=== PATIENT | female | born 1990 | race Caucasian/White ===

== ENCOUNTER 2022-04-06 09:08 | Outpatient (CLI) | payer BC, SELFPAY | END 2022-04-06 09:09 | disposition home or self-care (01) | LOC: NFLDREF 15:12 | PROVIDERS: PCP Physician Assistant Medical; Visit Provider Physician Assistant | DX: N97.9 Female infertility, unspecified (principal); Z31.69 Encounter for other general counseling and advice on procreation | CPT/HCPCS: 84144 ==

== ENCOUNTER 2022-04-17 08:32 | Outpatient (CLI) | payer BC, SELFPAY ==
[2022-04-17 10:47] LABS: Free T4 Free Thyroxine* 1.16 ng/dL (0.70-1.85)
[2022-04-18 12:56] LABS: Estradiol Premenol Female 41 pg/mL
[2022-04-18 17:28] LABS: Prolactin 4.8 ng/mL (2.8-29.2)
[2022-04-18 17:44] LABS: Follicle Stimulating Hormone 4.4 IU/L
[2022-04-25 13:06] LABS: Sex Hormone Binding Globulin 18 nmol/L (25-122); Testosterone Bioavailable 11.1 ng/dL (4.1-25.5); Testosterone, Free LC-MS/MS 4.5 pg/mL (1.3-9.2); Testosterone, LC-MS/MS 19 ng/dL (9-55)
[2022-04-25 16:36] LABS: 17-Hydroxyprogesterone HPLC 34.72 ng/dL (<=206.00)
== END 2022-04-17 08:33 | disposition home or self-care (01) ==
PROVIDERS: PCP Physician Assistant Medical; Visit Provider Physician Assistant
DX: Z31.9 Encounter for procreative management, unspecified (principal)
CPT/HCPCS: 36415; 82670; 83001; 83036; 83498; 84146; 84270; 84402; 84403; 84439; 84443

== ENCOUNTER 2022-05-31 10:41 | Outpatient (CLI) | payer BC, SELFPAY ==
[2022-05-31 11:28] LABS: Free T4 Free Thyroxine* 0.96 ng/dL (0.70-1.85)
== END 2022-05-31 10:42 | disposition home or self-care (01) ==
PROVIDERS: PCP Physician Assistant Medical; Visit Provider Obstetrics & Gynecology
DX: E03.9 Hypothyroidism, unspecified (principal)
CPT/HCPCS: 84439; 84443

== ENCOUNTER 2022-06-29 16:20 | Outpatient (CLI) | payer BC, SELFPAY | END 2022-06-29 16:21 | disposition home or self-care (01) | PROVIDERS: PCP Physician Assistant Medical; Visit Provider Physician Assistant | DX: Z13.29 Encounter for screening for other suspected endocrine disorder (principal); Z31.9 Encounter for procreative management, unspecified | CPT/HCPCS: 84443 ==

== ENCOUNTER 2022-09-20 14:22 | Outpatient (CLI) | payer BC, SELFPAY | END 2022-09-20 14:23 | disposition home or self-care (01) | LOC: NFLDREF 14:23 | PROVIDERS: PCP Physician Assistant Medical; Visit Provider Obstetrics & Gynecology | DX: E03.9 Hypothyroidism, unspecified (principal); E66.01 Morbid (severe) obesity due to excess calories | CPT/HCPCS: 84443 ==

== ENCOUNTER 2022-10-18 07:41 | Outpatient (CLI) | payer BC, SELFPAY | END 2022-10-18 07:42 | disposition home or self-care (01) | LOC: NFLDREF 13:10 | PROVIDERS: PCP Physician Assistant Medical; Referring Provider Physician Assistant Medical; Visit Provider Obstetrics & Gynecology | DX: N97.0 Female infertility associated with anovulation (principal); E03.9 Hypothyroidism, unspecified | CPT/HCPCS: 84144; 84443 ==

== ENCOUNTER 2022-12-10 08:05 | Outpatient (CLI) | payer BC, SELFPAY | END 2022-12-10 08:06 | disposition home or self-care (01) | LOC: NFLDREF 12-15 06:25 | PROVIDERS: PCP Physician Assistant Medical; Referring Provider Physician Assistant Medical; Visit Provider Obstetrics & Gynecology | DX: Z31.9 Encounter for procreative management, unspecified (principal) | CPT/HCPCS: 84144 ==

== ENCOUNTER 2022-12-24 11:01 | Outpatient (CLI) | payer BC, SELFPAY ==
--- NOTE | 2022-12-24 11:15 | CRLHL7_ITS ---
For Patients: As a result of the Century Cures Act, medical imaging exams and procedure reports are released immediately into your electronic medical record. You may view this report before your referring provider. If you have questions, please contact your health care provider. INDICATION: Evaluate tubal patency. Fertility workup. TECHNIQUE: Fluoroscopically-guided hysterosalpingogram performed in conjunction with Dr. Svetlana Narayanan. FINDINGS: Normal-appearing uterus. Free spill of contrast from the right fallopian tube. There is not convincing evidence for spill on the left. There could be a left-sided hydrosalpinx. Ultrasound may be helpful for confirmation. 39 seconds fluoroscopy time utilized. This examination was discussed briefly with Dr. Narayanan after the procedure. IMPRESSION: 1. Probable left-sided hydrosalpinx. Ultrasound confirmation may be helpful. 2. Normal uterus and right fallopian tube. Dictated by Al Kennedy MD @ 12/24/2022 3:54:42 PM (Electronically Signed)
--- NOTE | 2022-12-24 21:37 | P.GYNPRC_ITS ---
Procedure Note Date Seen: 12/24/22 Procedure Details: PREPROCEDURE DIAGNOSIS: Secondary infertility. POSTPROCEDURE DIAGNOSIS: 1. Secondary infertility. 2. Left distal hydrosalpinx. Normal right fallopian tube. NAME OF PROCEDURE: Hysterosalpingogram. ANESTHESIA: None. COMPLICATIONS: None. PROCEDURE: After obtaining verbal consent, the patient was placed in the dorsal lithotomy position on the x-ray table. An open-sided bivalve speculum was introduced into the vagina and the cervix easily visualized. The cervix and vagina were then prepped with Betadine. The anterior lip of the cervix was grasped with a single-tooth tenaculum for traction. A balloon tipped double- lumen catheter was then gently inserted through the cervical opening into the uterine cavity to the level of the fundus. The balloon was insufflated with 3 mL of air. The speculum was removed. The patient was repositioned in the supine position, covered, and the radiologist was called to the room. A hysterosalpingogram was then performed. A total of approximately 5 cc of Optiray 300 water soluble contrast dye was injected through the double-lumen catheter under moderate pressure. There was immediate fill of the uterine cavity to the cornua immediate fill of the right fallopian tube and spillage into the pelvis. There was immediate fill of the proximal left fallopian tube, which was initially thought to be patent tube. However, upon reinspection of the images, the tubal dye collected in a dilated distal left fallopian tube, consistent with hydrosalpinx. The balloon was deflated. The catheter was removed. The tenaculum was removed from the anterior lip of the cervix. Speculum was reinserted and hemostasis was noted. The patient tolerated the procedure well, though she did have moderate cramping discomfort during and just after the procedure. She was discharged to home in stable condition. She was contacted with the results of the suspected left hydrosalpinx, and prescription is sent to the pharmacy for doxycycline 100 mg b.i.d. for 5 days. She was directed to follow-up at her earliest convenience for a preoperative visit with plan for laparoscopic left salpingectomy and chromopertubation.
== END 2022-12-24 11:02 | disposition home or self-care (01) ==
LOC: RAD 11:02
PROVIDERS: PCP Physician Assistant Medical; Visit Provider Obstetrics & Gynecology
DX: N97.1 Female infertility of tubal origin (principal); N70.11 Chronic salpingitis
CPT/HCPCS: 58340; 74740; A4649; Q9967

== ENCOUNTER 2023-01-04 09:08 | Outpatient (CLI) | payer BC, SELFPAY ==
[2023-01-07 18:35] LABS: Progesterone, HPLC-MS/MS 11.05 ng/mL
== END 2023-01-04 09:09 | disposition home or self-care (01) ==
LOC: LAB 09:09
PROVIDERS: PCP Physician Assistant Medical; Visit Provider Obstetrics & Gynecology
DX: Z31.9 Encounter for procreative management, unspecified (principal)
CPT/HCPCS: 36415; 84144

== ENCOUNTER 2023-02-10 06:03 | Day surgery (SDC) | payer BC, SELFPAY ==
[2023-02-10] VITALS (13 sets, daily range): BP systolic 109–131; BP diastolic 68–86; PULSE 76–97; RESP 12–20; TEMP 36.9–37.1; O2SAT 95–98; BMI 42.6
[2023-02-10 06:26] LABS: Ur HCG Qualitative* Negative (Negative)
[2023-02-10] MEDS: LACTATED RINGERS 1000 ML 1,000 ML 100 ML IV (06:35)
[2023-02-10] MEDS: SODIUM CHLORIDE 0.9 % (FLUSH) 10 ML SYRINGE IVF (06:35)
--- NOTE | 2023-02-10 07:17 | W.PM.H&PU ---
History & Physical Update History & Physical Update H&P Reviewed and patient assessed: No changes noted H&P Updates: Physical exam: General: Pleasant, no acute distress Heart: Regular rate and rhythm, no murmur or gallop Lungs: Clear to auscultation bilaterally
--- NOTE | 2023-02-10 07:58 | W.ANESCHARGE ---
Anesthesia Charges Start Date/Time Anesthesia Start Date: 02/10/23 Anesthesia Start Time: 07:22 Stop Date/Time Anesthesia Stop Date: 02/10/23 Anesthesia Stop Time: 10:09
[2023-02-10] MEDS: BUPIVACAINE 0.25% 30 ML INJECTION (07:59)
--- NOTE | 2023-02-10 09:09 | W.ANESCHARGE ---
Anesthesia Charges Start Date/Time Anesthesia Start Date: 02/10/23 Anesthesia Start Time: 07:22 Stop Date/Time Anesthesia Stop Date: 02/10/23 Anesthesia Stop Time: 10:09
[2023-02-10] MEDS: LACTATED RINGERS 1000 ML 1,000 ML 35 ML IV (10:16)
[2023-02-10] MEDS: fentaNYL 100 MCG/2 ML inj 50 MCG IVP (10:20)
[2023-02-10] MEDS: OXYCODONE 5 MG TABLET 10 MG PO (11:30)
--- NOTE | 2023-02-10 18:20 | W.PM.GYNPROC ---
Procedure Note Date of procedure: 02/10/23 Pre-op diagnosis: Left hydrosalpinx on recent hysterosalpingogram Post-op diagnosis: other (1. Left hydrosalpinx with opal tubal adhesions. 2. Opal tubal adhesions of right fallopian tube. 3. Endometriosis involving the posterior cul-de-sac) Procedure: Laparoscopy with lysis of adhesions, excision of endometriosis, chromopertubation, and left salpingectomy Anesthesia: GETA Complications: None Surgeon: Svetlana Narayanan MD Client Development Director: Janneth Gomez Estimated blood loss (mL): 10 IV fluids (mL): 1,000 Urine Output (mL): 500 Pathology: specimen obtained, sent to pathology Condition: stable Disposition: PACU Findings: 1. Upon pelvic exam under anesthesia, the cervix and vagina were normal in appearance. Uterus was mobile and midposition, of normal size and texture. There were no palpable adnexal masses. 2. Upon laparoscopy, survey of the upper abdomen revealed a normal appearance to the inferior edge of the liver, gallbladder and stomach. There was a sheet of omental adhesion to the left upper quadrant. Bowels were grossly normal appearance. Survey of the pelvis revealed normal appearance to the uterus. There were some filmy adhesions along the bladder reflection anteriorly, consistent with previous delivery. The left fallopian tube was adherent to the pelvic brim, encased in adhesions near its distal end. After adhesions were released, the tube was still not found to be patent on chromopertubation, and distal hydrosalpinx was persistent. The right fallopian tube was also encased in filmy adhesions and initially in an abnormal location, with the fimbria adherent to the broad ligament anterior to the round ligament. Upon chromopertubation, there was fill and spill noted on the right side. Bilateral ovaries were normal in appearance. The cul-de-sac exhibited 2 powder burn lesions. One was within the serosa of the rectum, and the other was anterior to this in the cul-de-sac. Procedure Description: Patient was taken to the operating room with IV running. She received cefazolin in preoperative prophylaxis. She was positioned in dorsal lithotomy position with her legs fully supported in Yellofin stirrups. General anesthesia was administered. She was prepped and draped in the usual sterile fashion. Bimanual exam was performed for the above-noted findings. Speculum was inserted. A single-toothed uterine manipulator was inserted through the cervix into the lower uterine segment, and affixed to the anterior cervical lip. Speculum was removed. Mccord catheter was placed. Patient's legs were placed in neutral position. Attention was turned to patient's abdomen. The infraumbilical area was infiltrated with small amount of Marcaine. An infraumbilical incision was made with a scalpel and carried through to the underlying layer of fascia with a hemostat. The 5 mm Fios Kii trocar was assembled with laparoscope within, and insufflator attached. While tenting up the abdomen manually, the trocar was passed through the anterior abdominal wall into the peritoneal cavity. Trocar was removed. Pneumoperitoneum was achieved. Survey of abdomen and pelvis revealed the above-noted findings. Three additional port sites were created. The first was in the patient's left lower quadrant, just superior medial to the left ASIS. The second was a hand's breath superior to and slightly medial to the first. The third was in the patient's right lower quadrant, just superior medial to the right ASIS. Each was infiltrated with small amount of Marcaine prior to incision. A 5 mm incision was made at each site, making sure the large vessels were out of harm's way. A 5 mm Fios Kii port was inserted at each site, under direct visualization and without complication. The balloon on each of the four ports was inflated, holding each in place. The filmy adhesions encasing the distal left fallopian tube were dissected sharply away from the pelvic sidewall, mobilizing the tube into a normal anatomic location. Hemostasis of the dissection bed was noted. Likewise, the filmy adhesions encasing the right fallopian tube were dissected sharply away from the tube. The tube was mobilized substantially, allowing it to be return to a normal anatomic location as well. There was some blood clot at the dissection site in the anterior leaf of the broad ligament. Patient's legs were placed back in lithotomy position. The uterine manipulator was removed. A chromopertubation catheter was inserted through the cervix and into the uterus. The balloon tip of the catheter was inflated, holding it in place. The uterus was filled with normal saline containing methylene blue. Spillage of dye was noted through the right fallopian tube. However, the left fallopian tube remained filled and dilated, but did not drain. Further attempts to dissect away adhesions surrounding the fimbria resulted in opening up the distal tube, which clearly exhibited a hydrosalpinx. Decision was made to remove the left tube for this indication. While holding the tube away from the pelvic sidewall and ovary, the blood supply was cauterized and transected with the Thunderbeat device. Dissection was carried laterally to medially, until the cornua was reached. The tube was amputated at the left uterine cornua. It was removed from the abdomen and sent to pathology. The cul-de-sac was closely examined. The lesion that was not within the rectal mucosa was grasped with [place] forceps and dissected away from the surrounding peritoneum of the cul-de-sac with laparoscopic marcos. This was sent to pathology for analysis. Hemostasis of the biopsy site was noted. Rupa hemostatic agent was placed over the dissection bed in the anterior leaf of the right broad ligament. All instruments were removed from the ports. Pneumoperitoneum was released. The balloon tips of all ports were deflated, and the ports were removed. The skin of the port sites was closed with a subcuticular stitch of 4-0 Monocryl. Surgical glue was applied above this. The chromopertubation catheter was removed from the patient's uterus. Catheter was removed the patient's bladder. Patient tolerated procedure well and was taken to the recovery area in stable condition. I spoke to the patient's , and recommended against attempts to conceive this cycle. He expressed understanding.
== END 2023-02-10 12:07 | disposition home or self-care (01) ==
PROVIDERS: PCP Physician Assistant Medical; Visit Provider Obstetrics & Gynecology
PROC: (CPT 49320; principal; 2023-02-10 07:15)
DX: N70.11 Chronic salpingitis (principal); N73.6 Female pelvic peritoneal adhesions (postinfective); N80.329 Endometriosis of the posterior cul-de-sac, unspecified depth
CPT/HCPCS: 58662; 58661; 58350; 00840; 36415; 81025; 86850; 86900; 86901; 88305; A9270; C1758; J0330; J0665; J1100; J1170; J1885; J2250; J2405; J2704; J3010; J3490; J7120

== ENCOUNTER 2023-03-28 08:00 | Outpatient (CLI) | payer BC, SELFPAY | END 2023-03-28 08:01 | disposition home or self-care (01) | LOC: NFLDREF 04-01 09:36 | PROVIDERS: PCP Physician Assistant Medical; Referring Provider Physician Assistant Medical; Visit Provider Obstetrics & Gynecology | DX: E28.2 Polycystic ovarian syndrome (principal) | CPT/HCPCS: 84144 ==

== ENCOUNTER 2023-04-22 07:40 | Outpatient (CLI) | payer BC, SELFPAY | END 2023-04-22 07:41 | disposition home or self-care (01) | LOC: NFLDREF 04-27 06:18 | PROVIDERS: PCP Physician Assistant Medical; Referring Provider Physician Assistant Medical; Visit Provider Obstetrics & Gynecology | DX: Z31.9 Encounter for procreative management, unspecified (principal) | CPT/HCPCS: 84144 ==

== ENCOUNTER 2024-02-27 10:23 | Outpatient (CLI) | payer BC, SELFPAY ==
--- NOTE | 2024-02-27 11:00 | CRLHL7_ITS ---
For Patients: As a result of the Century Cures Act, medical imaging exams and procedure reports are released immediately into your electronic medical record. You may view this report before your referring provider. If you have questions, please contact your health care provider. INDICATION: Left leg swelling TECHNIQUE: Ultrasound venous duplex lower left extremity. Compression venous exam was performed using an-scale, color Doppler, and spectral Doppler analysis. COMPARISON: None. FINDINGS: Sonographic imaging demonstrates the left common femoral, deep femoral, superficial femoral, popliteal, posterior tibial and greater saphenous and the contralateral right common femoral veins to be fully compressible with normal color Doppler blood flow. IMPRESSION: Normal left lower extremity venous ultrasound, no sign of deep venous thrombosis. Dictated by Nazario Mcguire MD @ 02/27/2024 11:40:21 AM (Electronically Signed)
== END 2024-02-27 10:24 | disposition home or self-care (01) ==
PROVIDERS: PCP Physician Assistant Medical; Visit Provider Physician Assistant Medical
DX: M79.89 Other specified soft tissue disorders (principal); M79.605 Pain in left leg
CPT/HCPCS: 84443; 93971

== ENCOUNTER 2024-09-20 12:02 | Outpatient (CLI) | payer BC, SELFPAY ==
--- NOTE | 2024-09-20 12:15 | CRLHL7_ITS ---
For Patients: As a result of the Cures Act, medical imaging exams and procedure reports are released immediately into your electronic medical record. You may view this report before your referring provider. If you have questions, please contact your health care provider. OB ULTRASOUND INDICATION: Dating and viability. TECHNIQUE: Real time grayscale imaging of the fetus was performed. Transvaginal. LMP: 07/17/2024. NICHOLAS by LMP: 04/23/2025. GA: 9 w, 2 d. Previous US: No. CRL: 2.6 cm. 9 w 2 d. NICHOLAS: 04/23/2025. FHR: 180 BPM. Gestational sac: 3.6 cm. Appears within normal limits. Yolk sac: 4.0 mm. Appears within normal limits. Right ovary: N/V. Left ovary: 4.2 x 2.2 x 2.9 cm. IMPRESSION: Single living intrauterine with sonographic gestational age 9 weeks 2 days and sonographic due date 04/23/2025. Tani Berry M.D. Diagnostic Radiologist [email or web address] loco/Dictated by: Tani Berry MD @ 09/21/2024 9:00:00 AM (Electronically Signed)
== END 2024-09-20 12:03 | disposition home or self-care (01) ==
LOC: US 12:04
PROVIDERS: PCP Physician Assistant Medical; Visit Provider Physician Assistant
DX: Z34.91 Encounter for supervision of normal pregnancy, unspecified, first trimester (principal); Z3A.09 9 weeks gestation of pregnancy
CPT/HCPCS: 76817; 83021; 84443; 86592; 86703; 86704; 86706; 86762; 86787; 86803; 86850; 86900; 86901; 87086; 87340

== ENCOUNTER 2024-09-20 13:10 | Outpatient (CLI) | payer BC, SELFPAY | END 2024-09-20 13:11 | disposition home or self-care (01) | PROVIDERS: PCP Physician Assistant Medical; Visit Provider Physician Assistant | DX: Z34.91 Encounter for supervision of normal pregnancy, unspecified, first trimester (principal); Z3A.09 9 weeks gestation of pregnancy | CPT/HCPCS: 83020; 83021; 84443; 85660; 86592; 86703; 86704; 86706; 86762; 86787; 86803; 86850; 86900; 86901; 87086; 87340 ==

== ENCOUNTER 2024-10-18 08:45 | Outpatient (CLI) | payer BC, SELFPAY | END 2024-10-18 08:46 | disposition home or self-care (01) | PROVIDERS: PCP Physician Assistant Medical; Visit Provider Physician Assistant | DX: E03.9 Hypothyroidism, unspecified (principal); Z11.3 Encounter for screening for infections with a predominantly sexual mode of transmission | CPT/HCPCS: 84443; 87491; 87591 ==

== ENCOUNTER 2024-12-05 10:33 | Outpatient (CLI) | payer BC, SELFPAY | END 2024-12-05 10:34 | disposition home or self-care (01) | PROVIDERS: PCP Physician Assistant Medical; Visit Provider Physician Assistant | DX: O09.522 Supervision of elderly multigravida, second trimester (principal); O99.212 Obesity complicating pregnancy, second trimester; E66.01 Morbid (severe) obesity due to excess calories; Z68.42 Body mass index [BMI] 45.0-49.9, adult; Z3A.20 20 weeks gestation of pregnancy | CPT/HCPCS: 76811 ==

== ENCOUNTER 2025-01-02 13:06 | Outpatient (CLI) | payer BC, SELFPAY | END 2025-01-02 13:07 | disposition home or self-care (01) | LOC: US 13:07 | PROVIDERS: PCP Physician Assistant Medical; Visit Provider Obstetrics & Gynecology | DX: Z36.2 Encounter for other antenatal screening follow-up (principal); O99.212 Obesity complicating pregnancy, second trimester; O09.522 Supervision of elderly multigravida, second trimester; Z3A.24 24 weeks gestation of pregnancy | CPT/HCPCS: 76816 ==

== ENCOUNTER 2025-01-31 13:53 | Outpatient (CLI) | payer BC, SELFPAY ==
--- NOTE | 2025-01-31 14:00 | CRLHL7_ITS ---
For Patients: As a result of the Century Cures Act, medical imaging exams and procedure reports are released immediately into your electronic medical record. You may view this report before your referring provider. If you have questions, please contact your health care provider. OB ULTRASOUND LMP: 07/17/2024. NICHOLAS by LMP: 04/23/2025. GA: 28 w, 2 d. Single. Comparison: 01/02/2025, 12/05/2024, 09/02/2024. INDICATION: Growth. Obesity in . TECHNIQUE: Real time grayscale imaging of the fetus was performed. Transabdominal. CERVIX: Not visualized. POSITIONING: Vertex. AMNIOTIC FLUID: 4.1 cm. SDP (N: greater than 2 x 1 cm) PLACENTA: Technique: Transabdominal. PLACENTA POSITION: Anterior. DOPPLER: heart rate: 142 bpm. BIOMETRY: BPD: 7.0 cm. 28 w, 0 d, 28.9 percent. HC: 26.5 cm. 28 w, 6 d, 36.3 percent. AC: 25.4 cm. 29 w, 4 d, 80.3 percent. FL: 5.5 cm. 29 w, 0 d, 54.3 percent. FL/AC ratio: 21.6 percent. HC/AC ratio: 1.0. EFW: 1351 g. Weight: 3 lbs, 0 oz. age by this US: 28 w, 6 d. NICHOLAS by this US: 04/19/2025. Percentile by NICHOLAS: 72.1 percent. IMPRESSION: 1. Sonographic gestational age 28 weeks 6 days and sonographic due date 04/19/2025. Good correlation with dates. Normal interval growth. 2. Estimated weight 72nd percentile. Abdominal circumference 80th percentile. Tani Berry M.D. Diagnostic Radiologist [email or web address]/Dictated by: Tani Berry MD @ 02/03/2025 9:13:00 PM (Electronically Signed)
== END 2025-01-31 13:54 | disposition home or self-care (01) ==
LOC: US 13:53
PROVIDERS: PCP Physician Assistant Medical; Visit Provider Obstetrics & Gynecology
DX: O09.213 Supervision of pregnancy with history of pre-term labor, third trimester (principal); E66.01 Morbid (severe) obesity due to excess calories; Z68.42 Body mass index [BMI] 45.0-49.9, adult; Z3A.28 28 weeks gestation of pregnancy
CPT/HCPCS: 76816; 84443; 86592

== ENCOUNTER 2025-02-25 07:07 | Outpatient (CLI) | payer BC, SELFPAY ==
--- NOTE | 2025-02-25 07:15 | CRLHL7_ITS ---
For Patients: As a result of the Cures Act, medical imaging exams and procedure reports are released immediately into your electronic medical record. You may view this report before your referring provider. If you have questions, please contact your health care provider. OB ULTRASOUND FOLLOW-UP LIMITED, 02/25/2025 CLINICAL HISTORY: Obesity. COMPARISON: 01/31/2025, 01/02/2025, 12/05/2024. TECHNIQUE: Real time an scale imaging of the fetus was performed. Transabdominal imaging performed. FINDINGS: NICHOLAS by LMP: 04/23/2025. GA: 31 weeks 6 days. Gestation: Single. Cervix: Not visualized. Positioning: Vertex. Amniotic Fluid: 4.0 cm SDP. Placenta: Technique: TA. Placenta Position: Anterior. Dopplers: Heart Rate: 144 bpm. BIOMETRY: BPD: 7.8 cm, 31 weeks 2 days. 22% HC: 29.1 cm, 32 weeks 0 days. 18% AC: 29.7 cm, 33 weeks 4 days. 91% FL: 6.2 cm, 32 weeks 2 days. 50% FL/AC Ratio: 21.04% HC/AC Ratio: 0.98. EFW: 2067 grams, 4 lb 9 oz. Age by this US: 32 weeks 2 days. NICHOLAS by this US: 04/20/2025. Percentile by NICHOLAS: 72% IMPRESSION: 1. Sonographic gestational age 32 weeks 2 days and sonographic due date 04/20/2025. Good correlation with dates. Normal interval growth. 2. Estimated weight 72nd percentile. Abdominal circumference 91st percentile. Tani Berry M.D. Diagnostic Radiologist [email or web address] Transcribed: 9:50 am DW/Dictated by: Tani Berry MD @ 02/25/2025 8:56:00 AM (Electronically Signed)
== END 2025-02-25 07:08 | disposition home or self-care (01) ==
LOC: US 07:08
PROVIDERS: PCP Physician Assistant Medical; Visit Provider Obstetrics & Gynecology
DX: O99.213 Obesity complicating pregnancy, third trimester (principal); E66.01 Morbid (severe) obesity due to excess calories; Z68.42 Body mass index [BMI] 45.0-49.9, adult; Z3A.32 32 weeks gestation of pregnancy
CPT/HCPCS: 76816

== ENCOUNTER 2025-03-14 12:58 | Outpatient (CLI) | payer BC, SELFPAY ==
--- NOTE | 2025-03-14 13:00 | CRLHL7_ITS ---
For Patients: As a result of the Cures Act, medical imaging exams and procedure reports are released immediately into your electronic medical record. You may view this report before your referring provider. If you have questions, please contact your health care provider. OBSTETRICAL ULTRASOUND ??? BIOPHYSICAL PROFILE, 03/14/2025 INDICATION: Obesity, advanced maternal age. CLINICAL HISTORY: NICHOLAS by LMP: 04/04/2025 Gestational Age: 34 weeks 2 days COMPARISON: 02/25/2025, 01/31/2025, 01/02/2025 TECHNIQUE: Real-time an-scale transabdominal imaging of the fetus was performed. FINDINGS: Fetus: Single Cervix: Not visualized positioning: Vertex Amniotic Fluid: 4.5 cm SDP heart rate: 150 bpm BIOPHYSICAL PROFILE: Gross body movements: 2 tone: 2 Respiratory activity: 2 Amniotic fluid SDP: 2 Total score: 8 Placenta technique: Transabdominal Placenta position: Anterior IMPRESSION: Normal biophysical profile score of 8/8. TANI OCAMPO M.D. Diagnostic Radiologist [email or web address] Transcribed: 1:[address]/Dictated by: Tani Ocampo MD @ 03/14/2025 1:31:00 PM (Electronically Signed)
== END 2025-03-14 12:59 | disposition home or self-care (01) ==
LOC: US 12:58
PROVIDERS: PCP Physician Assistant Medical; Visit Provider Obstetrics & Gynecology
DX: O09.523 Supervision of elderly multigravida, third trimester (principal); O99.213 Obesity complicating pregnancy, third trimester; E66.01 Morbid (severe) obesity due to excess calories; Z68.42 Body mass index [BMI] 45.0-49.9, adult; Z3A.34 34 weeks gestation of pregnancy
CPT/HCPCS: 76819

== ENCOUNTER 2025-03-21 12:07 | Outpatient (CLI) | payer BC, SELFPAY ==
--- NOTE | 2025-03-21 12:15 | CRLHL7_ITS ---
For Patients: As a result of the Cures Act, medical imaging exams and procedure reports are released immediately into your electronic medical record. You may view this report before your referring provider. If you have questions, please contact your health care provider. OB ULTRASOUND BIOPHYSICAL PROFILE TRANSABDOMINAL Clinical History: NICHOLAS by LMP: 04/23/2025. GA: 35 w, 2 d. Single. Comparison: 03/14/2025, 02/25/2025, 01/31/2025. INDICATION: Obesity, AMA. TECHNIQUE: Real time an scale imaging of the fetus was performed. Transabdominal imaging performed. CERVIX: Not Visualized. POSITIONING: Vertex. AMNIOTIC FLUID: 7.1 cm SDP (N: greater than 2 x 1 cm) BIOPHYSICAL PROFILE: Gross body movements: 2. tone: 2. Respiratory activity: 2. Amniotic fluid: 2. SDP (N: greater than 2 x 1 cm). Total score: 8. PLACENTA: Technique: Transabdominal. PLACENTA POSITION: Vertex. DOPPLER: heart rate: 141 bpm. IMPRESSION: Normal biophysical profile 02/08. Tani Berry M.D. Diagnostic Radiologist [email or web address] SP/Dictated by: Tani Berry MD @ 03/21/2025 1:05:00 PM (Electronically Signed)
== END 2025-03-21 12:08 | disposition home or self-care (01) ==
LOC: US 12:07
PROVIDERS: PCP Physician Assistant Medical; Visit Provider Obstetrics & Gynecology
DX: O09.523 Supervision of elderly multigravida, third trimester (principal); O99.213 Obesity complicating pregnancy, third trimester; E66.01 Morbid (severe) obesity due to excess calories; Z68.42 Body mass index [BMI] 45.0-49.9, adult; Z3A.35 35 weeks gestation of pregnancy
CPT/HCPCS: 76819

== ENCOUNTER 2025-03-27 13:07 | Outpatient (CLI) | payer BC, SELFPAY ==
--- NOTE | 2025-03-27 13:15 | CRLHL7_ITS ---
For Patients: As a result of the Century Cures Act, medical imaging exams and procedure reports are released immediately into your electronic medical record. You may view this report before your referring provider. If you have questions, please contact your health care provider. OB ULTRASOUND NICHOLAS by LMP or US: 04/23/2025. GA: 36 w, 1 d. Single. Comparison: 03/21/2025, 03/14/2025, 02/25/2025, 01/31/2025. INDICATION: Obesity. TECHNIQUE: Real time an scale imaging of the fetus was performed. Transabdominal. CERVIX: Not visualized. POSITIONING: Vertex. AMNIOTIC FLUID: 5.8 cm SDP (N: greater than 2 x 1 cm) BIOPHYSICAL PROFILE: Gross body movements: 2. tone: 2. Respiratory activity: 2. Amniotic fluid: 2. SDP (N: greater than 2 x 1 cm). Total score: 8/8. PLACENTA: Technique: Transabdominal. PLACENTA POSITION: Anterior. DOPPLER: heart rate: 159 bpm. BIOMETRY: BPD: 8.7 cm. 35 w, 1 d, 32 percent. HC: 31.8 cm. 35 w, 5 d, 13 percent. AC: 33.6 cm. 37 w, 4 d, 90 percent. FL: 7.0 cm. 36 w, 1 d, 45 percent. FL/AC ratio: 20.95 percent. HC/AC ratio: 0.95. EFW: 3007 g. Weight: 6 lbs, 10 oz. age by this US: 36 w, 1 d. NICHOLAS by this US: 04/23/2025. Percentile by NICHOLAS: 67 percent. IMPRESSION: 1. Sonographic gestational age 36 weeks 1 day and sonographic due date 04/23/2025. Good correlation with dates. Normal interval growth. 2. Estimated weight 67th percentile. Abdominal circumference 90th percentile. 3. Normal biophysical profile score 8/8. Tani Berry M.D. Diagnostic Radiologist [email or web address]/Dictated by: Tani Berry MD @ 03/27/2025 3:09:00 PM (Electronically Signed)
== END 2025-03-27 13:08 | disposition home or self-care (01) ==
LOC: US 13:08
PROVIDERS: PCP Physician Assistant Medical; Visit Provider Obstetrics & Gynecology
DX: O99.213 Obesity complicating pregnancy, third trimester (principal); E66.01 Morbid (severe) obesity due to excess calories; Z68.42 Body mass index [BMI] 45.0-49.9, adult; Z3A.36 36 weeks gestation of pregnancy
CPT/HCPCS: 76816; 76819

== ENCOUNTER 2025-03-27 14:10 | Outpatient (CLI) | payer BC, SELFPAY ==
[2025-03-28 15:02] LABS: Strep B DNA Probe Negative (Negative)
[2025-03-28 23:29] LABS: Strep B Susceptibility Needed? No
== END 2025-03-27 14:11 | disposition home or self-care (01) ==
LOC: NFLDREF 14:11
PROVIDERS: PCP Physician Assistant Medical; Visit Provider Obstetrics & Gynecology
DX: Z34.93 Encounter for supervision of normal pregnancy, unspecified, third trimester (principal); Z3A.36 36 weeks gestation of pregnancy
CPT/HCPCS: 87081; 87653

== ENCOUNTER 2025-04-04 07:07 | Outpatient (CLI) | payer BC, SELFPAY ==
--- NOTE | 2025-04-04 07:15 | CRLHL7_ITS ---
For Patients: As a result of the Cures Act, medical imaging exams and procedure reports are released immediately into your electronic medical record. You may view this report before your referring provider. If you have questions, please contact your health care provider. OB ULTRASOUND BIOPHYSICAL PROFILE NICHOLAS by LMP: 04/23/2025. GA: 37 w, 2 d. Single. Comparison: 03/27/2025, 03/21/2025,03/14/2025. INDICATION: Morbid obesity. TECHNIQUE: Real time an scale imaging of the fetus was performed. Transabdominal. CERVIX: Not visualized. POSITIONING: Vertex. AMNIOTIC FLUID: 4.9 cm. SDP (N: greater than 2 x 1 cm) BIOPHYSICAL PROFILE: Total score: 2. Gross body movements: 2. tone: 2. Respiratory activity: 2. Amniotic fluid: 2. (SDP N: greater than 2 x 1 cm) Total: 02/08. PLACENTA: Technique: Transabdominal. PLACENTA POSITION: Anterior. DOPPLER: heart rate: 139 bpm. IMPRESSION: Normal BPP /8. Tani Berry M.D. Diagnostic Radiologist [email or web address] JR/Dictated by: Tani Berry MD @ 04/04/2025 7:42:00 AM (Electronically Signed)
== END 2025-04-04 07:08 | disposition home or self-care (01) ==
LOC: US 07:08
PROVIDERS: PCP Physician Assistant Medical; Visit Provider Obstetrics & Gynecology
DX: O99.213 Obesity complicating pregnancy, third trimester (principal); E66.01 Morbid (severe) obesity due to excess calories; Z68.42 Body mass index [BMI] 45.0-49.9, adult; Z3A.37 37 weeks gestation of pregnancy
CPT/HCPCS: 76819

== ENCOUNTER 2025-04-11 10:07 | Outpatient (CLI) | payer BC, SELFPAY ==
--- NOTE | 2025-04-11 10:15 | CRLHL7_ITS ---
For Patients: As a result of the Cures Act, medical imaging exams and procedure reports are released immediately into your electronic medical record. You may view this report before your referring provider. If you have questions, please contact your health care provider. OB ULTRASOUND BIOPHYSICAL PROFILE 04/11/2025 CLINICAL HISTORY: Morbid obesity. TECHNIQUE: Real time an scale imaging of the fetus was performed. Transabdominal imaging performed. FINDINGS: LMP: 07/17/2024. NICHOLAS by LMP: 04/23/2025. GA: 38 weeks 2 days. Cervix: Not visualized. Positioning: Vertex. Amniotic Fluid: 5.7 cm SDP. BIOPHYSICAL PROFILE Gross Body Movements: 2 Tone: 2 Respiratory Activity: 2 Amniotic Fluid SDP: 2 Total: 8 Placenta: Technique: TA Placenta Position: Anterior. Dopplers: Heart Rate: 155 bpm. IMPRESSION: Normal biophysical profile score of 8/8. Tani Berry M.D. Diagnostic Radiologist [email or web address] Transcribed: 11:18 am DW/Dictated by: Tani Berry MD @ 04/11/2025 11:01:00 AM (Electronically Signed)
== END 2025-04-11 10:08 | disposition home or self-care (01) ==
LOC: US 10:07
PROVIDERS: PCP Physician Assistant Medical; Visit Provider Obstetrics & Gynecology
DX: O99.213 Obesity complicating pregnancy, third trimester (principal); E66.01 Morbid (severe) obesity due to excess calories; Z68.42 Body mass index [BMI] 45.0-49.9, adult; O09.523 Supervision of elderly multigravida, third trimester; Z3A.38 38 weeks gestation of pregnancy
CPT/HCPCS: 76819

== ENCOUNTER 2025-04-16 05:40 | Inpatient (IN) | payer BC, SELFPAY ==
[2025-04-16] VITALS (19 sets, daily range): BP systolic 105–134; BP diastolic 54–81; PULSE 65–103; RESP 14–18; TEMP 36.6–37; O2SAT 95–98; BMI 45.3
[2025-04-16] MEDS: LACTATED RINGERS 1000 ML 1,000 ML 1200 ML IV ×2 (06:26→07:36)
[2025-04-16 06:37] LABS: Hematocrit* 34.5 % (33.0-51.0); Hemoglobin* 11.2 gm/dL (12.0-16.0); Immature Granulocytes Pct Auto 0.8 %; Mean Corpuscular HGB Conc 33 gm/dL (32-36); Mean Corpuscular Hemoglobin 29 pg (26-34); Mean Corpuscular Volume 90 fL (80-100); RDW Coefficient of Variation % 14.8 % (11.5-15.5); Red Blood Count* 3.83 m/uL (4.00-5.20); White Blood Count* 14.19 K/uL (4.50-11.00)
[2025-04-16 06:40] LABS: Immature Granulocytes Abs Auto 0.10 K/uL (0.00-0.30); Lymphocytes Absolute Auto 2.20 K/uL (0.90-2.90); Slide Review Reflex No
--- NOTE | 2025-04-16 07:38 | W.PM.H&PU ---
History & Physical Update History & Physical Update H&P Reviewed and patient assessed: No changes noted
--- NOTE | 2025-04-16 07:39 | P.OBPRC_ITS ---
Procedure Date of procedure: 04/16/25 Pre-op diagnosis: 1. 39 0/7 weeks gestation 2. History of prior low transverse section Post-op diagnosis: same Procedure Done: Global Will [facility] bill your pro fee for this procedure?: Yes Blood Loss Measurement Type: QBL (345 mL) Bakri Used: No IV fluids (mL): 1,500 Urine Output (mL): 200 Urine Output Comment: clear Surgeon: Esha Eid MD Event Management Consultant: Jojo TREVIÑO Anesthesia Type: Spinal and TAP Block Findings: Extensive adhesions between the rectus muscles and fascia and between the omentum and anterior peritoneum to the left of midline. Live-born female , cephalic presentation, Apgars 9 and 9 at 1 and 5 minutes respectively, weight 7 lb 7 oz or 3375 grams. Absent left fallopian tube. Normal right fallopian tube, bilateral ovaries and uterus. Procedure Name: Repeat low transverse section with extensive lysis of adhesions Procedure Description: PROCEDURE: After obtaining informed consent, the patient was taken to the operating room where spinal anesthesia was obtained and found to be adequate. She was prepared and draped in the normal sterile fashion in the dorsal supine position with a leftward tilt. A Traxi retractor was used to elevate the pannus prior to abdominal prep. A Pfannenstiel skin incision was made with a scalpel along the line of the patient's previous Pfannenstiel scar. This incision was carried down to the underlying layer of fascia with the Bovie. The fascia was incised in the midline and the incision extended laterally. The superior and inferior aspects of the fascial incision were grasped with Merlin clamps, elevated and the underlying rectus muscles dissected off sharply and with electrocautery. This dissection took an increased amount of time given the dense adhesions and due to bleeding from a perforation vessel on the right that rquired suture ligation for hemostasis. The rectus muscles were then in the midline. The omentum was noted to be adherent to the peritoneum on the left side along the entire length of the incision. This was serially isolated, doubly clamped with Mona clamps, transected, and suture ligated with 0 chromic for hemostasis until the omentum was free. It was then pushed cephalad. The Hector O retractor was then placed into the incision. The adhesions between the bladder and lower uterine segment were taken down sharply with Metzenbaum scissors. The lower uterine segment was then incised in a transverse fashion with the scalpel. Upon entry into the uterus, clear amniotic fluid was noted. The uterine incision was extended laterally with blunt finger fractionation. The infant's head was delivered atraumatically, followed by the remainder of the infant's body. The nose and mouth were suctioned with the bulb suction. The cord was doubly clamped and cut after a 30 second delay, and the infant was h anded off the field for evaluation. The placenta was delivered spontaneously with umbilical cord traction and fundal massage. The uterus was cleared of all clots and debris. The uterine incision was reapproximated in a running locking fashion with a 0 chromic suture. A 2nd layer of the same suture was used to imbricate in horizontal fashion. The gutters were irrigated and suctioned. All instruments and retractors were removed. The anterior peritoneum was reapproximated in a running fashion with a 3-0 Vicryl suture. The subfascial tissues were carefully inspected and hemostasis assured. The fascia was reapproximated in a running fashion with a looped 0 Maxon suture. The subcutaneous tissues were copiously irrigated. Hemostasis was assured. The subcutaneous fat layer was reapproximated with interrupted sutures of 3-0 plain gut. The skin was closed in a subcuticular fashion with 4-0 Vicryl. A Mepilex silver dressing was applied. A TAP block was then administered under ultrasound guidance by Anesthesia. The patient tolerated the procedure well, though she did feel some pressure and had some nausea whenever the peritoneum was manipulated. Sponge, lap, needle, and instru ment counts were reported as correct x2. The patient was taken to the recovery room, awake, and in stable condition. She did receive 3 grams of IV Ancef preoperatively. Complications: None. Pathology: none sent Surgery Debrief Performed: Yes Condition: stable Disposition: floor
[2025-04-16] MEDS: LACTATED RINGERS 1000 ML 1,000 ML 100 ML IV (08:43)
--- NOTE | 2025-04-16 08:53 | SUR.OPER ---
surgeon declines sending placenta; witnessed by FA
--- NOTE | 2025-04-16 10:16 | P.ANES_ITS ---
Anesthesia Charges Start Date/Time Anesthesia Start Date: 04/16/25 Anesthesia Start Time: 07:40 Stop Date/Time Anesthesia Stop Date: 04/16/25 Anesthesia Stop Time: 09:50 Coding CPT Codes CPT Codes: ANESTH CS DELIVERY - 92420 ([id number]) P3 - PATIENT W/SEVERE SYS DISEASE, QK - ASSEMBLER LEATHER GOODS 2-4 CNCRNT ANES PROC, QX - CHILD PSYCHOMETRIST SVC W/ MD MED DIRECTION
--- NOTE | 2025-04-16 10:16 | W.ANESCHARGE ---
Anesthesia Charges Start Date/Time Anesthesia Start Date: 04/16/25 Anesthesia Start Time: 07:40 Stop Date/Time Anesthesia Stop Date: 04/16/25 Anesthesia Stop Time: 09:50 Coding CPT Codes CPT Codes: ANESTH CS DELIVERY - 21951 ([id number]) P3 - PATIENT W/SEVERE SYS DISEASE, QK - CONSUMER MARKETING MANAGER 2-4 CNCRNT ANES PROC, QX - OVER SHORT AND DAMAGE CLERK SVC W/ MD MED DIRECTION
--- NOTE | 2025-04-16 10:19 | W.PM.NB ---
Nerve Block Nerve Block Time Seen by Provider: 09:30 Date Seen: 04/16/25 Type of block requested by surgeon for post-operative analgesia: TAP Side: bilateral Time out performed: Yes Verification of patient name: Yes Verification of date of : Yes Site marking: site marked Name of person performing procedure: Grace Jairarlette Continuous monitoring Was continuous monitoring of O2 sat, B/P, biological technical officer, recorded every 15 minutes?: Yes Procedure Checklist: sterile prep, needles and gloves Ultrasound guided. Images saved: Yes Medications given in 5ml increments after negative aspiration: Marcaine %: 0.25 mL: 30 Needle gauge: 20 and Exparel mL: 10 Needle gauge: 20 Patient tolerated procedure well: Yes Block Charges Block Charge (with Pro Fee): TAP Bilateral Use of Ultrasound Machine for Block: Yes- US Guidance/pain block
--- NOTE | 2025-04-16 10:42 | P.ANES_ITS ---
Anesthesia Charges Start Date/Time Anesthesia Start Date: 04/16/25 Anesthesia Start Time: 07:40 Stop Date/Time Anesthesia Stop Date: 04/16/25 Anesthesia Stop Time: 09:50 Coding CPT Codes CPT Codes: ANESTH CS DELIVERY - 16579 ([id number]) QK - VERTICAL PUNCH OPERATOR 2-4 CNCRNT ANES PROC, QX - EMERGENCY MEDICAL SERVICE MANAGER SVC W/ MD MED DIRECTION, P3 - PATIENT W/SEVERE SYS DISEASE
--- NOTE | 2025-04-16 10:42 | W.ANESCHARGE ---
Anesthesia Charges Start Date/Time Anesthesia Start Date: 04/16/25 Anesthesia Start Time: 07:40 Stop Date/Time Anesthesia Stop Date: 04/16/25 Anesthesia Stop Time: 09:50 Coding CPT Codes CPT Codes: ANESTH CS DELIVERY - 46036 ([id number]) QK - BUFFET SERVER 2-4 CNCRNT ANES PROC, QX - ASSISTANT KITCHEN MANAGER SVC W/ MD MED DIRECTION, P3 - PATIENT W/SEVERE SYS DISEASE
[2025-04-16] MEDS: ACETAMINOPHEN 500 MG TABLET 1000 MG PO ×2 (12:06→18:38)
[2025-04-16] MEDS: LACTATED RINGERS 1000 ML 1,000 ML 125 ML IV (14:47)
[2025-04-16] MEDS: SODIUM CHLORIDE 0.9 % (FLUSH) 10 ML SYRINGE IVF (15:44)
[2025-04-16] MEDS: ENOXAPARIN 40 MG/0.4 ML INJ SUBCUT (22:09)
[2025-04-17 00:06] VITALS: TEMP 36.8
[2025-04-17] MEDS: ACETAMINOPHEN 500 MG TABLET 1000 MG PO ×2 (00:06→17:43)
[2025-04-17 00:34] VITALS: BP 97/63; PULSE 84; RESP 18; TEMP 36.8; O2SAT 98
[2025-04-17 04:13] VITALS: BP 104/69; PULSE 85; RESP 18; TEMP 36.7; O2SAT 97
[2025-04-17 06:28] LABS: Hemoglobin* 10.1 gm/dL (12.0-16.0)
[2025-04-17] MEDS: LEVOTHYROXINE 75 MCG TABLET PO (06:32)
--- NOTE | 2025-04-17 07:39 | PM.OBPNVD1 ---
OB - PN:Subj Subjective Date Seen: 04/17/25 Narrative: Miryam is a 34 y.o. who was admitted to [facility] for repeat section.? She had an uncomplicated repeat .? ? The patient feels well.? The pain is well controlled with current medications.? She has no new complaints.? She is breast feeding and reports things are going well.? the patient has done well.? Vitals have been stable.? She has remained afebrile.? Has a good appetite, is tolerating a general diet.? She is voiding without difficulty.? She is passing a small amount gas and has not had a bowel movement.? She is ambulating and denies any dizziness.? Has Small amount of rubra lochia.? OB - PN: Obj Exam Physical Exam: Vital signs: Temp Pulse Resp BP Pulse Ox O2 Del Method 98.0 F 85 18 104/69 97 Room Air 04/17/25 04:13 04/17/25 04:13 04/17/25 04:13 04/17/25 04:13 04/17/25 04:13 04/17/25 04:13 Narrative: GENERAL APPEARANCE:? normal affect, alert, no distress MOOD:? appropriate CHEST:? clear to auscultation HEART:? regular rate and rhythm ABDOMEN:? soft, non-tender the uterine fundus is firm At Umbilicus, Midline and is appropriate for the stage of recovery.Slight distention of abdomen. EXTREMITIES:? normal and trace edema Incision: Silver dressing intact with dime sized amount of drainage seen just right of midline. Urinary Catheter Management: Urethral: Cath placed during this visit: no OB - PN: Obj Data Labs Labs: Laboratory Results - last 24 hr 04/16/25 04/17/25 06:20 06:01 Hgb 10.1 L RPR Titer Cancelled RPR Screen Cancelled T.pallidum Ab (TP-PA) Cancelled Blood Type A Positive Antibody Screen NEGATIVE OB - PN: A/P Delivery Assessment and Plan (1) Status post delivery: Status: Acute (2) care following delivery: Status: Acute (3) Lactating mother: Status: Acute Plan day: 1 Plan: routine care Comments: Assessment/Plan?G 5 P 2 status post uncomplicated repeat .? ?? 1.? Continue route PP cares? 2.? .? May see if desired? 3.? Anticipate discharge home tomorrow or the following day per pt preference? 4. Slight abdominal distention, encouraged ambulation today to help with return of bowel function?
[2025-04-17 08:04] VITALS: BP 107/72; PULSE 82; RESP 18; TEMP 36.7; O2SAT 97
[2025-04-17 16:00] VITALS: BP 114/75; PULSE 89; RESP 18; TEMP 36.9; O2SAT 98
[2025-04-17] MEDS: DOCUSATE SODIUM 100 MG CAPSULE PO (16:08)
[2025-04-17] MEDS: IBUPROFEN 600 MG TABLET PO (21:49)
[2025-04-17] MEDS: ENOXAPARIN 40 MG/0.4 ML INJ SUBCUT (21:49)
[2025-04-17 21:53] VITALS: BP 104/70; PULSE 77; RESP 15; TEMP 36.7; O2SAT 98
[2025-04-18] MEDS: ACETAMINOPHEN 500 MG TABLET 1000 MG PO ×2 (00:14→05:57)
[2025-04-18] MEDS: IBUPROFEN 600 MG TABLET PO ×2 (05:11→11:12)
[2025-04-18 05:12] VITALS: BP 104/69; PULSE 85; RESP 17; TEMP 36.8; O2SAT 98
[2025-04-18] MEDS: LANOLIN CREAM 1 APPLIC TOPICAL (05:57)
[2025-04-18] MEDS: LEVOTHYROXINE 75 MCG TABLET PO (05:57)
--- NOTE | 2025-04-18 08:00 | P.DS_ITS ---
DS: Providers Provider Time Seen by Provider: 07:40 Date Seen: 04/18/25 Date of admission: 04/16/25 05:40 Primary care physician: Rio Shabazz PA-C Admitting Clinician: Esha Eid MD Attending Physician on discharge: Rekha Crystal CNM Date of Discharge: 04/18/25 DS: Diagnosis Discharge Diagnosis (1) care following delivery: Status: Acute (2) Lactating mother: Status: Acute (3) Hypothyroid: Status: Acute Exam Narrative: Exam Narrative: Constitutional: no acute distress Abdomen: soft, uterine fundus 1cm below umbilicus. Appropriate for this stage of healing Extremities: trace swelling, full sensation Incision: low transverse abdominal incision covered with surgical dressing Cardiovascular: regular heart rate and rhythm, no murmurs Respiratory: no labored breathing, lungs clear to auscultation Const: Vital Signs, click to edit/add: Vital Signs - 24 hr 04/17/25 08:04 04/17/25 16:00 04/17/25 21:53 Temperature 98.1 F 98.5 F 98.0 F Pulse Rate [Pulse Oximeter] 82 89 77 Respiratory Rate 18 18 15 Blood Pressure [Ri ght Arm] 107/72 114/75 104/70 Pulse Oximetry 97 98 98 Oxygen Delivery Me thod Room Air Room Air Room Air 04/18/25 05:12 Temperature 98.3 F Pulse Rate [Pulse Oximeter] 85 Respiratory Rate 17 Blood Pressure [Ri ght Arm] 104/69 Pulse Oximetry 98 Oxygen Delivery Me thod Room Air OB - DS: Summary Hospital Course Hospital Course: The patient is a 34 year old G 5 P 2 at 39 weeks gestation that was admitted to the Center on 04/16/25 for a planned repeat . She had an uncomplicated delivery. She delivered a viable female . She is . the patient has done well. Pain is controlled Tylenol, ibuprofen, and occassionally oxycodone. She is using ice pack to abdomen as needed. Complain of uterine cramping with nursing. is going ok. She is working to sustain a deep latch and nipples are getting sore but are intact. She knows resources and will use them if she feels necessary. No large blood clots and heavy bleeding. Voiding without problem. No BM yet but is passing gas. Miryam and her partner have had infertility issues and plan to use natural family planning for child spacing. Miryam has hypothyroidism and takes Levothyroxine 75mcg. There wasn't a dose change in but prior to she was not taking it regularly (stated only about 50% of the time). Consider recheck TSH at 2 week appointment due to irregular dosing prior to . Eager to go home and shower in her own shower! CYNTHIA Guillen Peripartum Data delivery method: Repeat Section Laceration description: None Episiotomy description: None Procedures: Procedures Operation Date: 04/16/25 07:15 Actual Procedure Side Surgeon p Repeat Section with Extensive lysis of adhesions Esha Eid MD complications: none [place] Gender: Female Discharge Plan: Home Status at Discharge Functional status at discharge: independent ambulation Overall status at discharge: patient is progressing back to baseline Time Spent with Patient Time attestation: Total time spent providing and/or coordinating discharge services: Time spent: Less than 30 minutes Discharge Plan Discharge Disposition: Home, Self-Care Date of Admission: 04/16/25 05:40 Attending Provider on Discharge: Rekha Crystal Primary Care Provider: Rio Shabazz Condition: Stable Anticipated Discharge Date/Time: 04/18/25 10:00 Discharge Medications: New docusate sodium 100 mg Capsule 100 mg PO DAILY Qty: 120 0RF Rx Instructions: Take 1-2 tablets daily as needed for constipation. ibuprofen 600 mg Tablet 600 mg PO Q6H PRN (Reason: Pain) Qty: 90 0RF oxycodone 5 mg Tablet 5 - 10 mg PO Q4H PRN (Reason: Pain) Qty: 5 0RF Continued [id number] 3 fatty no.1 27-1-300 mg capsule 1 cap PO DAILY ondansetron HCl 4 mg tablet 4 mg PO Q6H PRN (Reason: nausea and vomiting) Qty: 30 3RF omeprazole 40 mg capsule,delayed release(DR/EC) 40 mg PO BID PRN (Reason: heartburn) Qty: 180 1RF levothyroxine 75 mcg tablet 75 mcg PO QDAY Qty: 90 3RF metoclopramide HCl [Reglan] 5 mg tablet 5 mg PO Q4-6H PRN (Reason: headache) Qty: 10 0RF Discharge Orders: Discharge Order (Routine); Ordered 04/18/25 Ordered By: Rekha Crystal Patient Education: Bupivacaine Liposome (By injection), OB Over the Counter Medication Information, OB /Breast Feeding Additional Instructions: Discharge instructions were reviewed with the patient including signs and symptoms of infection and home going medications Lifting Restrictions: 20 pounds for 6 weeks No not submerge incision under water X 2 weeks? Nothing vaginally for 6 weeks: no tampons or intercourse Do not drive while taking narcotic pain medication(s) Off Work or School for 8 weeks Symptoms to report to doctor: * Bleeding that saturates more than one pad per hour * Passing clots larger than the size of a golf ball * Pain not relieved by prescribed medication * Fever above 100.4 degrees Fahrenheit * A foul vaginal odor * Difficulty in emotions, mood, and functions * Thoughts of hurting yourself and/or * Painful, reddened area in your breast * Any drainage, redness, or tenderness in your IV/epidural site * Severe headache that doesn't improve after taking medications * Changes in vision, including temporary loss of vision, blurred vision, and/or light sensitivity * Upper abdominal pain (usually under ribs on the right side) * Decrease in urination or painful, frequent urinating * Chest pain * Shortness of breath * Tenderness or pain with redness and/swelling in the calf(s) of your leg 1 week incision check 2-week visit: discuss feeding concerns, review control options and screen for anxiety/depression. 6-week visit for an annual exam. consultation services are available to all mothers and babies for the first year after delivery.? To make an appointment, please call [phone]. Activity Level: Light activity Discharge Diet: Regular Follow Up Appointments: [facility] [Provider Group] Forms: Patient Belongings, MyHealth Info Instructions
[2025-04-18] MEDS: DOCUSATE SODIUM 100 MG CAPSULE PO (08:30)
== END 2025-04-18 11:50 | disposition home or self-care (01) | DRG 540 ==
PROVIDERS: Admitting Provider Obstetrics & Gynecology; PCP Physician Assistant Medical; Visit Provider Obstetrics & Gynecology
PROC: 10D00Z1 Extraction of Products of Conception, Low, Open Approach (ICD-10-PCS; CPT 59514; principal; 2025-04-16 07:15)
DX: O34.211 Maternal care for low transverse scar from previous cesarean delivery (principal); O99.62 Diseases of the digestive system complicating childbirth; K66.0 Peritoneal adhesions (postprocedural) (postinfection); G89.18 Other acute postprocedural pain; O99.284 Endocrine, nutritional and metabolic diseases complicating childbirth; E03.9 Hypothyroidism, unspecified; Z3A.39 39 weeks gestation of pregnancy; Z37.0 Single live birth
CPT/HCPCS: 01961; 36415; 64488; 76942; 85018; 85025; 86592; 86850; 86900; 86901; G0463; A4314; A9270; J0665; J0666; J0690; J1100; J1650; J1885; J2371; J2405; J2590; J2765; J3010; J7120

== ENCOUNTER 2025-05-08 12:48 | Outpatient (CLI) | payer BC, SELFPAY ==
--- NOTE | 2025-05-08 14:43 | W.PM.LAC.MC ---
Consult Note - Mom Date of Visit Date of visit: 05/08/25 Reason for consultation: Assistance Needed and Low Milk Supply (questioning) Visit Code: Visit Patient's Information Phone number: [phone] : 5 Para: 2 Allergies estradiol Allergy (Verified 04/17/25 00:34) Estrogens Allergy (Verified 04/17/25 00:34) Mother's Medical History: Medical History (Updated 04/19/25 @ 00:01 by Background Daac) Anemia affecting ?O99.019 - Anemia complicating , unspecified trimester (ICD-10) AMA (advanced maternal age) multigravida 35+ ?O09.529 - Supervision of elderly multigravida, unspecified trimester (ICD-10) Infertility Hydrosalpinx ?N70.11 - Chronic salpingitis (ICD-10) PCOS (polycystic ovarian syndrome) ?E28.2 - Polycystic ovarian syndrome (ICD-10) Hypothyroid ?E03.9 - Hypothyroidism, unspecified (ICD-10) Morbid obesity with BMI of 45.0-49.9, adult ?E66.01 - Morbid (severe) obesity due to excess calories (ICD-10) ?Z68.42 - Body mass index [BMI] 45.0-49.9, adult (ICD-10) Acne ?L70.9 - Acne, unspecified (ICD-10) Work Plans: will return to work Delivery Information Delivery type: Primary C/S; Non-Labored Gestational Age: 39 Gestational Weight For Age: AGA Weight: 3.375 kg Discharge Weight: 3.13 kg Percentage weight loss: 7.3 Baby's Information Baby's Age at Visit: 22 days Baby's Provider or Clinic: [facility] Jaundice: No Past Experience Past Experience: Yes Current Frequency of Day Feedings: every 2-2.5 hrs Frequency of Night Feedings: 2-3 hrs Both Breasts: Yes Suck: seems ok Latch: comfortable, but shallow Length of Time: 10-15 min ea side Goals: as long as possible Pumping Pumping: No (but would like to figure out a plan for pumping) Supplementing EBM Supplement: No Formula Supplement: No Baby Elimination Number of Wet Diapers a Day: 8+/day Number of BM a Day: 8+/day; yellow and seedy Breast/Nipple Condition Breast Information: Breasts are symmetrical with rounded lower quadrants, intramammary distance is less than 1.5 inches. No erythema. Nipples are supple, everted prior to feeding. Breast Shape: Round Engorgement: No Maternal Nipple Condition - Left: Common Nipple Maternal Nipple Condition - Right: Common Nipple Sore Nipples: No Baby Assessment Skin: Normal Tongue/frenulum: Normal/elastic Palate: Average Lips: Relaxed and Symmetrical Jaw Alignment: Symmetrical Mucosa: [place], moist Onsite Observation Pre-Feed weight: 3.926 kg Post-Feed weight: 3.982 kg Milk Transferred (mL): 56 Position: Cross cradle and Football Attachment/latch-on achieved: Easily Suck pattern: Suck burst and normal rest Swallow: Audible, consistent Behavior following feed: Alert, content Pre-Nursing Left Nipple: Within Normal Limits Pre-Nursing Right Nipple: Within Normal Limits Post-Nursing Left Nipple: Within Normal Limits Post-Nursing Right Nipple: Within Normal Limits Assessments/Interventions Assessments/Interventions: Mom here for a weighted feed as she is worried about her milk supply. Baby is nursing every 2-2.5 hours during the day, sometimes goes 3 hrs at night. Mom knows this can be normal but she wants to be sure baby is gaining weight well and her milk supply is adequate. She would also like to figure out when she can pump to build a small freezer supply and when/how to add bottles.? Baby has only had one bottle so far. Mom latched baby to her RIGHT breast but with a very shallow latch; babe quickly moved into a rhythmic suckle and swallows were noted. Worked with mom to relatch baby with a wider, deeper latch and even more swallows were audible. Mom had no pain with the shallow latch. Babe does not open wide She nursed for 10 minutes and took 40 ml Mom then switched her to her LEFT breast; babe again had a shallow latchand was resistant to getting a deeper latch on this side; tried in both cross cradle and football hold. She nursed for 10 minutes and took in another 16 ml; mom tried relatching again for a larger feeding and she declined. Mom describes this feeding as fairly typical, although if they were at home baby may have nursed a bit longer. Discussed calorie needs of baby; expect somewhere between 2-3oz/feeding depending on number of feedings/day. If she only takes 2 oz, expect her to need 12 feedings/day; however if she can improve her latch and therefore her milk transfer, she could decrease to 8-10 feedings/day. Education provided: Early feeding cues to maximize timing of latching, Asymmetric latch technique for wide/deep latch to increase milk, Transfer for baby and increase comfort for mom, Supply/demand nature of milk supply, Need for frequent stimulation/milk removal, Alternative feeding methods (SNS, cup, finger feeding, bottling) (discussed bottle options that support BF more than Linnette Mk;such as Lansinoh, Spectra, Evenflo balance and [employer]on), Pumping for milk management and Milk collection, storage Feeding Plan: Worked with mom/taught asymmetrical latch technique for a wide, deep latch and mom reports increased comfort with this. Reviewed in both football and cross cradle hold; mom will continue to work on with feedings Discussed normals of ; milk coming in, regulation of supply Reviewed pump options: can pump in the AM after morning feeding to build a bit of a freezer stash; then when add in bottles, pump at the feeding time and pump just a little more than baby needs to regulate supply also discussed milk catchers that can be used with feedings to collect small amounts throughout the day as desired without adding in extra pumpings Follow-Up Suggested follow up: Appointment as needed Recommend mom be seen by provider for:: Thyroid check as known hypothyroidsim, lost milk supply h first at 3-4 months and mom missed her 2 week PP appt Time Spent Time spent with patient (min): 75 Meds Home Medications and Allergies Home Medications ?Medication ?Instructions ?Recorded ?Confirmed ?Type levothyroxine 75 mcg tablet 75 mcg PO QDAY #90 tabs 10/04/22 04/16/25 Rx [id number] 3 fatty no.1 27 1 cap PO DAILY 09/20/24 04/16/25 History mg-1 mg-300 mg capsule omeprazole 40 mg capsule,delayed 40 mg PO BID PRN heartburn #180 02/25/25 04/16/25 Rx release caps ondansetron HCl 4 mg tablet 4 mg PO Q6H PRN nausea and 02/25/25 04/16/25 Rx vomiting #30 tabs metoclopramide HCl 5 mg tablet 5 mg PO Q4-6H PRN headache #10 tabs 03/11/25 04/16/25 Rx (Reglan) docusate sodium 100 mg capsule 100 mg PO DAILY #120 caps 04/18/25 Rx ibuprofen 600 mg tablet 600 mg PO Q6H PRN Pain #90 tabs 04/18/25 Rx oxycodone 5 mg tablet 5 - 10 mg (1 - 2 x 5 mg) PO Q4H 04/18/25 Rx PRN Pain #5 tabs Allergies Allergy/AdvReac Type Severity Reaction Status Date / Time estradiol Allergy Verified 04/17/25 00:34 Estrogens Allergy Verified 04/17/25 00:34
== END 2025-05-08 12:49 | disposition home or self-care (01) ==
PROVIDERS: PCP Physician Assistant Medical; Visit Provider Obstetrics & Gynecology
DX: Z39.1 Encounter for care and examination of lactating mother (principal)
CPT/HCPCS: G0463

== ENCOUNTER 2025-05-28 11:01 | Outpatient (CLI) | payer BC, SELFPAY ==
[2025-05-30 21:24] LABS: HPV Source Cervix
[2025-06-06 10:06] LABS: Pap Test Digital Imaging Done
== END 2025-05-28 11:02 | disposition home or self-care (01) ==
PROVIDERS: PCP Physician Assistant Medical; Visit Provider Physician Assistant
DX: Z12.4 Encounter for screening for malignant neoplasm of cervix (principal); E03.9 Hypothyroidism, unspecified
CPT/HCPCS: 84443; 87624; 87625; 88141; 88142; 88175